=== PATIENT | male | born 1970 | race Caucasian/White ===

== ENCOUNTER 2017-07-11 15:31 | Emergency (ER) | payer MEDICAID ==
[~2017-07-11] VITALS: Ht 182.9 cm; Wt 106.0 kg
[2017-07-11 15:33] VITALS: BP 167/96; PULSE 109; RESP 18; TEMP 97.9; O2SAT 98
[2017-07-11] MEDS ORDERED: SODIUM CHLORIDE 0.9% FLUSH 10 ML FLUSH IV FLUSH PRN (16:00)
[2017-07-11] MEDS ORDERED: LORazepam 2 MG/ML VIAL IV PUSH ONE (16:00)
--- NOTE | 2017-07-11 16:01 | PD ---
HPI Chief Complaint: Flank/Kidney Pain Time Seen by Provider: 15:54 Travel History International Travel<30 days: No Contact w/Intl Traveler<30days: No Traveled to known affect area: No History of Present Illness HPI 47-year-old male patient with history of chronic back pains and hip pain secondary to arthritis, had been on Xanax previously but has not taken it about 2 weeks, hypertension, presents to the ER today for 2 days history of anxiety, difficulty sleeping, insomnia, and dates that his lower back and flank area, area as he terms as his "kidneys" are hurting him. He denies any fevers, chest pains, shortness of breath, abdominal pain, vomiting, urinary symptoms, or other issues. Pain is currently rated at 5 out of 10. Modifying Factors: None Associated Signs & Symptoms: Bilateral flank pain, anxiety Risk Factors: History of anxiety attacks, chronic back pain PFSH Past Medical History Anxiety: Yes Medical other: Yes (BAD HIPS) Social History Alcohol Use: No Tobacco Use: No Substance Use: No Allergies-Medications (Allergen,Severity, Reaction): Coded Allergies: No Known Allergies (Verified Allergy, Unknown, 07/11/17) Reported Meds & Prescriptions Reported Meds & Active Scripts Active No Active Prescriptions or Reported Medications Review of Systems Except as stated in HPI: all other systems reviewed are Neg Physical Exam Narrative GENERAL: Well-developed very anxious middle-aged male patient currently in moderate distress. Awake and oriented 3. SKIN: Focused skin assessment warm/diaphoretic. HEAD: Atraumatic. Normocephalic. EYES: Pupils equal and round. No scleral icterus. No injection or drainage. ENT: No nasal bleeding or discharge. Mucous membranes pink and moist. NECK: Trachea midline. No JVD. Supple. CARDIOVASCULAR: Regular rate and rhythm. No murmur appreciated. RESPIRATORY: No accessory muscle use. Clear to auscultation. Breath sounds equal bilaterally. GASTROINTESTINAL: Abdomen soft, non-tender, nondistended. Hepatic and splenic margins not palpable. BACK: No CVA tenderness. No rash. No point tenderness on palpation of the spine. MUSCULOSKELETAL: No obvious deformities. No clubbing. No cyanosis. No edema. NEUROLOGICAL: Awake and alert. No obvious cranial nerve deficits. Motor grossly within normal limits. Normal speech. PSYCHIATRIC: Appropriate mood and affect; insight and judgment normal. Data Data Last Documented VS Vital Signs Date Time Temp Pulse Resp B/P (MAP) Pulse Ox O2 Delivery O2 Flow Rate FiO2 07/11/17 16:51 103 20 193/113 (139) 93 07/11/17 15:33 97.9 Orders Orders Complete Blood Count With Diff (07/11/17 15:46) Comprehensive Metabolic Panel (07/11/17 15:46) Lipase (07/11/17 15:46) Urinalysis - C+S If Indicated (07/11/17 15:46) Iv Access Insert/Monitor (07/11/17 15:46) Ecg Monitoring (07/11/17 15:46) Oximetry (07/11/17 15:46) Sodium Chloride 0.9% Flush (Ns Flush) (07/11/17 16:00) Ct Abd/Pel W/O Iv Contrast (07/11/17 15:55) Lorazepam Inj (Ativan Inj) (07/11/17 16:00) Labs Laboratory Tests Test 07/11/17 16:00 07/11/17 16:50 White Blood Count 12.0 TH/MM3 Red Blood Count 4.42 MIL/MM3 Hemoglobin 15.7 GM/DL Hematocrit 44.4 % Mean Corpuscular Volume 100.4 FL Mean Corpuscular Hemoglobin 35.5 PG Mean Corpuscular Hemoglobin Concent 35.3 % Red Cell Distribution Width 13.2 % Platelet Count 323 TH/MM3 Mean Platelet Volume 7.9 FL Neutrophils (%) (Auto) 79.4 % Lymphocytes (%) (Auto) 12.7 % Monocytes (%) (Auto) 7.4 % Eosinophils (%) (Auto) 0.1 % Basophils (%) (Auto) 0.4 % Neutrophils # (Auto) 9.6 TH/MM3 Lymphocytes # (Auto) 1.5 TH/MM3 Monocytes # (Auto) 0.9 TH/MM3 Eosinophils # (Auto) 0.0 TH/MM3 Basophils # (Auto) 0.0 TH/MM3 CBC Comment DIFF FINAL Differential Comment Blood Urea Nitrogen 6 MG/DL Creatinine 1.10 MG/DL Random Glucose 116 MG/DL Total Protein 8.9 GM/DL Albumin 4.6 GM/DL Calcium Level 9.7 MG/DL Alkaline Phosphatase 107 U/L Aspartate Amino Transf (AST/SGOT) 27 U/L Alanine Aminotransferase (ALT/SGPT) 34 U/L Total Bilirubin 0.6 MG/DL Sodium Level 133 MEQ/L Potassium Level 3.1 MEQ/L Chloride Level 98 MEQ/L Carbon Dioxide Level 23.8 MEQ/L Anion Gap 11 MEQ/L Estimat Glomerular Filtration Rate 71 ML/MIN Lipase 83 U/L Urine Collection Type VOIDED Urine Color YELLOW Urine Turbidity HAZY Urine pH 6.5 Urine Specific Wilson 1.008 Urine Protein TRACE mg/dL Urine Glucose (UA) NEG mg/dL Urine Ketones TRACE mg/dL Urine Occult Blood TRACE Urine Nitrite NEG Urine Bilirubin NEG Urine Leukocyte Esterase TRACE Urine RBC 0-3 /hpf Urine WBC 3-5 /hpf Urine Squamous Epithelial Cells 3-5 /hpf Urine Bacteria FEW /hpf Urine Hyaline Casts 10-14 /lpf Urine Mucus FEW /lpf Microscopic Urinalysis Comment CULT NOT INDICATED MDM Medical Decision Making Medical Screen Exam Complete: Yes Emergency Medical Condition: Yes Medical Record Reviewed: Yes Interpretation(s) Laboratory Tests Test 07/11/17 16:00 07/11/17 16:50 White Blood Count 12.0 TH/MM3 (4.0-11.0) Red Blood Count 4.42 MIL/MM3 (4.50-5.90) Mean Corpuscular Volume 100.4 FL (80.0-100.0) Mean Corpuscular Hemoglobin 35.5 PG (27.0-34.0) Neutrophils (%) (Auto) 79.4 % (16.0-70.0) Neutrophils # (Auto) 9.6 TH/MM3 (1.8-7.7) Blood Urea Nitrogen 6 MG/DL (7-18) Random Glucose 116 MG/DL (74-106) Total Protein 8.9 GM/DL (6.4-8.2) Sodium Level 133 MEQ/L (136-145) Potassium Level 3.1 MEQ/L (3.5-5.1) Estimat Glomerular Filtration Rate 71 ML/MIN (>89) Urine Turbidity HAZY (CLEAR) Urine Ketones TRACE mg/dL (NEG) Urine Leukocyte Esterase TRACE (NEG) Urine Bacteria FEW /hpf (NONE) Urine Hyaline Casts 10-14 /lpf (RARE) Urine Mucus FEW /lpf (OCC) Last 24 hours Impressions Abdomen/Pelvis CT 07/11/17 4571 Signed Impressions: Service Date/Time: July 16:16 - CONCLUSION: 1. No renal or ureteral calculi. 2. Small right inguinal hernia containing fat with oval soft tissue density in the right inguinal ring most likely representing the patient's right testicle. 3. Severe degenerative changes in both hips. Sunny Jay MD Differential Diagnosis Musculoskeletal back pains versus renal colic versus alcohol withdrawal versus Xanax withdrawal versus anxiety attack versus chronic back pain Narrative Course CAT scan did not show any signs of acute processes, no signs of kidney stones. Patient has known history of chronic hip arthritis and this appears on CAT scan as well. He states that he gets chronic back pains and hip pains. I suspect that some of this could be causing his current back symptoms. Patient was given a small dose of Ativan because he states that he was anxious about just going into the CAT scan. On reevaluation at 5:40 PM, he is feeling improved, pain is subsiding and his anxiety is improved. His blood pressure is still fairly elevated and he states that he had been on blood pressure medication in the past but states that his doctor had taken him off of it because his blood pressure was not as bad anymore. At this point, I think he does need to be on something. He will need to follow-up with his primary care physician regarding ongoing symptoms and also for elevated blood pressure. He should return for any chest pains, shortness of breath, focal neurological deficits, or new symptoms as needed. The plan has been discussed with him he states understanding. Diagnosis Primary Impression: Anxiety attack Additional Impressions: Hypertension Acute exacerbation of chronic low back pain Med/Other Pt SpecificInfo: Prescription(s) given Scripts Potassium Chloride ER (K-Tab) 20 Meq Tab 20 MEQ PO DAILY for Electrolyte Replacement, #7 TAB 0 Refills Prov: Keo Alberts MD 07/11/17 Ibuprofen (Ibuprofen) 600 Mg Tab 600 MG PO Q6H Y for Pain/Inflammation, #20 TAB 0 Refills Prov: Keo Alberts MD 07/11/17 Amlodipine (Norvasc) 5 Mg Tab 5 MG PO DAILY for Blood Pressure Management, #14 TAB 0 Refills Prov: Keo Alberts MD 07/11/17 Cyclobenzaprine (Flexeril) 10 Mg Tab 10 MG PO TID for Muscle Spasm, #15 TAB 0 Refills Prov: Keo Alberts MD 07/11/17 Disposition: 01 DISCHARGE HOME Condition: Stable Keo Alberts MD Jul 11, 2017 16:01
[2017-07-11 16:05] VITALS: O2SAT 96
[2017-07-11 16:10] LABS: AUTOMATED NEUTROPHIL # 9.6 TH/MM3 (1.8-7.7); BASOPHIL % 0.4 % (0.0-2.0); EOSINOPHIL % 0.1 % (0.0-4.0); HEMATOCRIT 44.4 % (39.0-51.0); HEMOGLOBIN 15.7 GM/DL (13.0-17.0); LYMPH % 12.7 % (9.0-44.0); LYMPHOCYTE # 1.5 TH/MM3 (1.0-4.8); MEAN CELL VOLUME 100.4 FL (80.0-100.0); MEAN CORPUSCULAR HEMOGLOBIN 35.5 PG (27.0-34.0); MEAN CORPUSCULAR HGB CONC 35.3 % (32.0-36.0); MEAN PLATELET VOLUME 7.9 FL (7.0-11.0); MONO % 7.4 % (0.0-8.0); MONOCYTE # 0.9 TH/MM3 (0-0.9); NEUT % 79.4 % (16.0-70.0); PLATELET COUNT 323 TH/MM3 (150-450); RED BLOOD COUNT 4.42 MIL/MM3 (4.50-5.90); RED CELL DISTRIBUTION WIDTH 13.2 % (11.6-17.2)
[2017-07-11 16:15] LABS: CHLORIDE 98 MEQ/L (98-107); SODIUM (NA) 133 MEQ/L (136-145)
[2017-07-11 16:19] LABS: ALBUMIN 4.6 GM/DL (3.4-5.0); BICARBONATE 23.8 MEQ/L (21.0-32.0); BLOOD UREA NITROGEN 6 MG/DL (7-18); CALCIUM 9.7 MG/DL (8.5-10.1); GLUCOSE,RANDOM 116 MG/DL (74-106)
[2017-07-11 16:22] LABS: ALT (GPT) 34 U/L (12-78); AST (GOT) 27 U/L (15-37); GLOMERULAR FILTRATION RATE 71 ML/MIN (>89)
[2017-07-11 16:24] LABS: TOTAL BILIRUBIN ADULT 0.6 MG/DL (0.2-1.0); TOTAL PROTEIN 8.9 GM/DL (6.4-8.2)
[2017-07-11 16:25] LABS: ALKALINE PHOSPHATASE 107 U/L (45-117)
--- NOTE | 2017-07-11 16:31 | RADRPT ---
EXAM DATE/TIME: 07/11/2017 16:16 [facility] COMPARISON: No previous studies available for comparison. INDICATIONS : Bilateral flank pain. ORAL CONTRAST: No oral contrast ingested. RADIATION DOSE: 24.91 CTDIvol (mGy) MEDICAL HISTORY : None SURGICAL HISTORY : None. ENCOUNTER: Initial ACUITY: 1 day PAIN SCALE: 7/10 LOCATION: Bilateral flank TECHNIQUE: Volumetric scanning of the abdomen and pelvis was performed. Using automated exposure control and ad justment of the mA and/or kV according to patient size, radiation dose was kept as low as reasonably achievable to obtain optimal diagnostic quality images. DICOM format image data is available electro nically for review and comparison. FINDINGS: LOWER LUNGS: The visualized lower lungs are clear. LIVER: Homogeneous density without lesion. There is no dilation of the biliary tree. No calcified gallston es. SPLEEN: Normal size without lesion. PANCREAS: Within normal limits. KIDNEYS: Normal in size and shape. There is no mass, stone, or hydronephrosis. ADRENAL GLANDS: Within normal limits. VASCULAR: There is no aortic aneurysm. BOWEL/MESENTERY: The stomach, small bowel, and colon demonstrate no acute abnormality. There is no free intraperitone al air or fluid. ABDOMINAL WALL: Within normal limits. RETROPERITONEUM: There is no lymphadenopathy. BLADDER: No wall thickening or mass. REPRODUCTIVE: Within normal limits. INGUINAL: There is no adenopathy. There is a small right inguinal hernia with mesenteric fat. There is an oval soft tissue density in the right inguinal ring measuring up to approximately 3.3 x 2.9 cm likely repr esenting the patient's right testicle. MUSCULOSKELETAL: Severe degenerative changes are noted in both hips. CONCLUSION: 1. No renal or ureteral calculi. 2. Small right inguinal hernia containing fat with oval soft tissue density in the right inguinal rin g most likely representing the patient's right testicle. 3. Severe degenerative changes in both hips. Sunny Jay MD on July 11, 2017 at 16:25 Board Certified Radiologist. This report was verified electronically.
[2017-07-11 16:51] VITALS: BP 193/113; PULSE 103; RESP 20; O2SAT 93
[2017-07-11 17:02] LABS: BILIRUBIN, URINE NEG (NEG); BLOOD, URINE TRACE (NEG); GLUCOSE,URINE NEG (NEG); KETONE, URINE TRACE mg/dL (NEG); NITRITE,URINE NEG (NEG); PH, URINE 6.5 (5.0-8.5); URINE LEUKOCYTE ESTERASE TRACE (NEG)
[2017-07-11 17:31] LABS: MUCUS URINE FEW /lpf (OCC); URINE COLOR YELLOW (YELLW/STRAW)
[2017-07-11 17:32] LABS: BACTERIA, URINE FEW /hpf; RBC, URINE 0-3 /hpf (0-3)
[2017-07-11] MEDS ORDERED: POTA1TAB4 PO (17:50)
[2017-07-11] MEDS ORDERED: AMLO5 PO (17:50)
[2017-07-11] MEDS ORDERED: IBUP-232 PO (17:50)
[2017-07-11] MEDS ORDERED: CYCL10TA PO (17:50)
== END 2017-07-11 18:25 | disposition home or self-care (01) ==
LOC: PHED 15:31
DX: F41.1 Generalized anxiety disorder (principal); I10 Essential (primary) hypertension; M54.5 Low back pain; G89.29 Other chronic pain
CPT/HCPCS: 74176; 80053; 81001; 83690; 85025; 96374; 99284; J2060